=== PATIENT | male | born 1940 | race Caucasian/White ===

== ENCOUNTER → 2024-09-29 | Outpatient (CLI) | payer MEDICARE, BC, SELFPAY ==
--- NOTE | 2024-09-29 15:04 | XR_ITS ---
Examination: Cervical spine 4 views TECHNIQUE: AP lateral swimmer's lateral AP odontoid cervical spine 4 views Exam date and time: September 29, 2024 1525 hours INDICATIONS: Neck pain 10 years radiating to the hands FINDINGS: No cervical fracture Advanced degenerative disc disease C3-C4, C4-C5, C5-C6, C6-C7 Intact odontoid IMPRESSION: Advanced degenerative disc disease C3-C4, C4-C5, C5-C6, C6-C7
== END | disposition home or self-care (01) ==
PROVIDERS: PCP Internal Medicine; Referring Provider Orthopaedic Surgery; Visit Provider Orthopaedic Surgery
DX: M50.31 Other cervical disc degeneration, high cervical region (principal)
CPT/HCPCS: 72040

== ENCOUNTER → 2024-10-17 | Outpatient (CLI) | payer MEDICARE, BC, SELFPAY ==
--- NOTE | 2024-10-17 10:02 | XR_ITS ---
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
--- NOTE | 2024-10-17 10:02 | XR_ITS ---
Examination: Bilateral hands, 4 views Technique: AP, lateral each hand total 4 views Date and time of exam: October 17, 2024 1005 hours INDICATIONS: Bilateral hand pain beginning 4 years ago. 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
== END | disposition home or self-care (01) ==
LOC: CDIM 09:50
PROVIDERS: PCP Internal Medicine; Referring Provider Orthopaedic Surgery; Visit Provider Orthopaedic Surgery
DX: M18.0 Bilateral primary osteoarthritis of first carpometacarpal joints (principal); M19.032 Primary osteoarthritis, left wrist; M19.031 Primary osteoarthritis, right wrist
CPT/HCPCS: 73100; 73120

== ENCOUNTER → 2024-10-29 | Outpatient (CLI) | payer MEDICARE, BC, SELFPAY ==
--- NOTE | 2024-10-29 16:30 | XR_ITS ---
Examination: MRI cervical spine without intravenous contrast Date and time of exam: October 29, 2024 1425 hrs. Indications: Neck pain 6 years radiating down the arms weakness in the hands Technique: Multiple axial and sagittal sections of the cervical spine to been obtained. T2 weighted sagittal sections, TR 3, 270, TE 117 T1-weighted sagittal sections, TR 500, TE 11 T1-weighted axial sections, TR 607, TE 12, axial sections TR 18, TE 27 and T2 weighted transverse sections, TR 3920, TE 122. Findings: No cervical fracture Advanced disc narrowing C3-C4, C5-C6, C6-C7, C7-T1 Diffuse cervical disc desiccation No localized enlargement cervical cord C2-C3 no disc protrusion C3-C4 4 mm central osteophyte disc complex indenting the ventral margin cervical cord, advanced bilateral neural foraminal stenosis C4-C5 advanced right moderate left neural foraminal stenosis C5-C6 moderate right advanced left neural foraminal stenosis C6-C7 moderate bilateral neural foraminal stenosis C7-T1 moderate bilateral neural foraminal stenosis Impression: Significant cervical spinal stenosis as above, most severe C3-C4
== END | disposition home or self-care (01) ==
PROVIDERS: PCP Internal Medicine; Referring Provider Orthopaedic Surgery; Visit Provider Orthopaedic Surgery
DX: M48.02 Spinal stenosis, cervical region (principal)
CPT/HCPCS: 72141

== ENCOUNTER → 2024-11-03 | Outpatient (CLI) | payer MEDICARE, BC, SELFPAY ==
[2024-11-03 15:34] LABS: Basophils # (Auto) 0.1 Thou/mm3 (0.0-0.2); Basophils % (Auto) 1 % (0-2.5); Eosinophils # (Auto) 0.1 Thou/mm3 (0.0-0.5); Eosinophils % (Auto) 1 % (0-10); Hematocrit 46.8 % (41.0-53.0); Hemoglobin 16.1 g/dL (13.5-16.0); Immature Granulocytes % (Auto) 1 % (0-0); Immature Granulocytes Auto 0.05 Thou/mm3 (0.00-0.00); Lymphocytes # (Auto) 3.3 Thou/mm3 (1.0-4.8); Lymphocytes % (Auto) 30 % (10-50); Mean Corpuscular HGB Conc 34.4 g/dl (31.0-37.0); Mean Corpuscular Hemoglobin 30.8 pg (25.0-35.0); Mean Corpuscular Volume 90 fL (80-100); Monocytes # (Auto) 0.9 Thou/mm3 (0.0-0.8); Monocytes % (Auto) 9 % (0-12); Neutrophils # (Auto) 6.3 Thou/mm3 (1.8-7.7); Neutrophils % (Auto) 59 % (37-80); Nucleated Red Blood Cell % 0 /100 WBC (0); Platelet Count 362 Thou/mm3 (140-440); RDW Standard Deviation 43.9 fL (35.1-43.9); Red Blood Count 5.22 Miln/mm3 (4.50-5.90); White Blood Count 10.7 Thou/mm3 (3.8-10.6)
[2024-11-03 15:44] LABS: Glucose Estimated Average 108 mg/dL (80-131); Hemoglobin A1C 5.4 % Hgb (4.8-6.0)
[2024-11-03 15:48] LABS: Alanine Aminotransferase 23 U/L (10-49); Albumin, Serum 4.4 gm/dL (3.4-4.8); Anion Gap 7 (7-16); Aspartate Amino Transferase 24 U/L (0-34); BUN/Creatinine Ratio 15 Ratio (12-20); Bilirubin,Total 0.9 mg/dL (0.3-1.2); Blood Urea Nitrogen 19 mg/dL (9-23); Calcium 9.8 mg/dL (8.3-10.6); Calcium (Corrected) 9.8 mg/dL (8.5-10.1); Carbon Dioxide 28.6 mMol/L (20.0-31.0); Chloride 106 mMol/L (98-107); Creatinine (Component) 1.3 mg/dL (0.6-1.3); Globulin 2.2 gm/dL (2.3-3.5); Glucose 97 mg/dL (74-106); Osmolality,Calculated 285 (275-295); Potassium 4.6 mMol/L (3.4-5.1); Sodium 142 mMol/L (136-145); Total Protein 6.6 gm/dL (5.7-8.2); eGFR 54 See Note
[2024-11-03 15:49] LABS: Alkaline Phosphatase 56 U/L (46-116); Cardiac Risk Estimate 4.7 RATIO (4.0-6.7); Cholesterol 156 mg/dL (132-200); Free T4 (Free Thyroxine) 1.02 ng/dL (0.89-1.76); HDL Cholesterol 33 mg/dL (40-60); LDL Cholesterol,Calculated 88 mg/dL (0-130); Thyroid Stimulating Hormone 4.62 uIU/mL (0.55-4.78); Triglycerides 173 mg/dL (30-150); Vitamin D 25 Hydroxy Total 35.8 ng/mL (7.3-40.2)
== END | disposition home or self-care (01) ==
LOC: COPL 14:22
PROVIDERS: PCP Internal Medicine; Referring Provider Internal Medicine; Visit Provider Internal Medicine
DX: I11.0 Hypertensive heart disease with heart failure (principal); E11.9 Type 2 diabetes mellitus without complications; E55.9 Vitamin D deficiency, unspecified; E78.2 Mixed hyperlipidemia; E03.9 Hypothyroidism, unspecified
CPT/HCPCS: 36415; 80053; 80061; 82306; 83036; 84439; 84443; 85025

== ENCOUNTER → 2024-11-26 | Outpatient (CLI) | payer MEDICARE, BC, SELFPAY ==
--- NOTE | 2024-11-26 14:06 | XR_ITS ---
Examination: Foot, right, 3 views Technique: AP, oblique, lateral views foot, 3 views Date and time of exam: November 26, 2024 1412 hours INDICATIONS: Right foot pain beginning one month ago. FINDINGS: Advanced osteoarthritis first metatarsophalangeal joint No fracture No erosive arthritis IMPRESSION: Advanced osteoarthritis first metatarsophalangeal joint
== END | disposition home or self-care (01) ==
LOC: CDIM 13:38
PROVIDERS: PCP Internal Medicine; Referring Provider Internal Medicine; Visit Provider Internal Medicine
DX: M19.071 Primary osteoarthritis, right ankle and foot (principal)
CPT/HCPCS: 73630